=== PATIENT | male | born 1955 | race African-American/Black ===

== ENCOUNTER → 2023-11-04 | Outpatient (CLI) | payer OTHER ==
[~2023-11-04] MED LIST: IOHEXOL 350 MG/ML 150 ML VIAL ONE; SODIUM CHLORIDE 0.9% 100 ML ONE
== END | disposition home or self-care (01) ==
LOC: RADMN 06:46
PROVIDERS: ATTEND Family Medicine
DX: I70.0 Atherosclerosis of aorta (principal); R07.9 Chest pain, unspecified; I77.819 Aortic ectasia, unspecified site; I77.9 Disorder of arteries and arterioles, unspecified; N40.0 Benign prostatic hyperplasia without lower urinary tract symptoms
CPT/HCPCS: 74174; 74175; Q9967; J7050